=== PATIENT | male | born 1955 | race Caucasian/White ===

== ENCOUNTER 2017-03-24 10:53 | Emergency (ER) | payer SELFPAY ==
[~2017-03-24] VITALS: Ht 175.3 cm; Wt 65.0 kg
[2017-03-24 10:54] VITALS: BP 121/67; PULSE 104; RESP 16; TEMP 98.2; O2SAT 98
--- NOTE | 2017-03-24 11:26 | PD ---
HPI Chief Complaint: Injury Time Seen by Provider: 11:22 Travel History International Travel<30 days: No Contact w/Intl Traveler<30days: No Traveled to known affect area: No History of Present Illness HPI 61-year-old male presents to the emergency department for evaluation of a spot on his right posterior shoulder as well as left knee erythema and warmth. Patient states symptoms started approximately 2 weeks ago. Patient denies any fevers or chills. No chest pain or shortness breath. No abdominal pain. No nausea, vomiting, diarrhea. Patient denies any specific injury to cause symptoms. He does report a history of type 2 diabetes and diabetic neuropathy. He states that he was on Humalog, Lantus, gabapentin. However, he has been off these medications since September. He states he is homeless and living out of his car and cannot afford insulin. The patient denies any other complaints at this time. PFSH Past Medical History Diabetes: Yes Patient Takes Glucophage: Yes (suposed to be taking metformin ) Influenza Vaccination: No Past Surgical History Other Surgery: Yes (absess removed ) Social History Alcohol Use: Yes (occ) Tobacco Use: No (hx quit ) Substance Use: Yes (marajuiana ) Allergies-Medications (Allergen,Severity, Reaction): Coded Allergies: Demerol (Verified Allergy, Severe, 03/24/17) irritated Lobster (Verified Allergy, Severe, Anaphylaxis, 03/24/17) Sulfa (Verified Allergy, Severe, 03/24/17) Codeine (Verified Adverse Reaction, Unknown, 03/24/17) sleepy Reported Meds & Prescriptions Reported Meds & Active Scripts Active Metformin (Metformin HCl) 500 Mg Tab 500 Mg PO BIDPC With meals Keflex (Cephalexin) 500 Mg Cap 500 Mg PO Q6H 10 Days Bactrim DS (Sulfamethoxazole-Trimethoprim) 800-160 Mg Tab 1 Tab PO BID Review of Systems Except as stated in HPI: all other systems reviewed are Neg Physical Exam Narrative GENERAL: Well-nourished, well-developed male patient, afebrile. Patient is ambulatory. SKIN: Focused skin assessment warm/dry. Patient has 1.5 cm x 1.5 cm area of erythema with a black center to the right posterior shoulder. No active drainage. No fluctuance or abscess formation. Patient also has 11 cm x 9 cm area of erythema over the left anterior knee. No evidence of fluctuance. Atraumatic. HEAD: Normocephalic. EYES: No scleral icterus. No injection or drainage. NECK: Supple, trachea midline. No JVD or lymphadenopathy. CARDIOVASCULAR: Regular rate and rhythm without murmurs, gallops, or rubs. Bilateral radial and pedal pulses are 2+. RESPIRATORY: Breath sounds equal bilaterally. No accessory muscle use. Lungs sounds are clear to auscultation. GASTROINTESTINAL: Abdomen soft, non-tender, nondistended. MUSCULOSKELETAL: No cyanosis, or edema. Patient has tenderness to palpation over left anterior knee. He has full flexion and extension, but pain with flexion. BACK: Nontender without obvious deformity. No CVA tenderness. Data Data Last Documented VS Vital Signs Date Time Temp Pulse Resp B/P Pulse Ox O2 Delivery O2 Flow Rate FiO2 03/24/17 11:12 109 18 Room Air 03/24/17 10:54 98.2 121/67 98 Orders Complete Blood Count With Diff (03/24/17 11:17) Comprehensive Metabolic Panel (03/24/17 11:17) Magnesium (Mg) (03/24/17 11:17) Beta Hydroxybutyrate (Acetone) (03/24/17 11:17) Urinalysis - C+S If Indicated (03/24/17 11:17) Blood Gas Venous (Vbg) (03/24/17 11:17) Sodium Chlor 0.9% 1000 Ml Inj (Ns 1000 M (03/24/17 11:30) Knee, Complete (4vws) (03/24/17 ) Sodium Chlor 0.9% 1000 Ml Inj (Ns 1000 M (03/24/17 12:30) Clindamycin Inj (Cleocin Inj) (03/24/17 12:30) Insulin Human Regular Inj (Novolin R Inj (03/24/17 12:30) Insulin Human Regular Inj (Novolin R Inj (03/24/17 12:30) Blood Glucose (03/24/17 13:52) Labs Laboratory Tests Test 03/24/17 03/24/17 11:29 11:30 Blood Gas Puncture Site LINE Blood Gas Patient Temperature 98.6 Venous Blood pH 7.38 Venous Blood Partial Pressure 44 mmHg CO2 Venous Blood Partial Pressure 35 mmHg O2 Venous Blood HCO3 25 mmol/L Venous Blood Oxygen Saturation 70 % Venous Blood Oxygen Content 12.1 Vol % Venous Blood Base Excess 0.7 mmol/L Blood Gas Inspired Oxygen 21 % White Blood Count 6.2 TH/MM3 Red Blood Count 4.62 MIL/MM3 Hemoglobin 12.7 GM/DL Hematocrit 38.1 % Mean Corpuscular Volume 82.4 FL Mean Corpuscular Hemoglobin 27.4 PG Mean Corpuscular Hemoglobin 33.2 % Concent Red Cell Distribution Width 13.4 % Platelet Count 345 TH/MM3 Mean Platelet Volume 7.8 FL Neutrophils (%) (Auto) 74.6 % Lymphocytes (%) (Auto) 14.2 % Monocytes (%) (Auto) 8.1 % Eosinophils (%) (Auto) 2.2 % Basophils (%) (Auto) 0.9 % Neutrophils # (Auto) 4.6 TH/MM3 Lymphocytes # (Auto) 0.9 TH/MM3 Monocytes # (Auto) 0.5 TH/MM3 Eosinophils # (Auto) 0.1 TH/MM3 Basophils # (Auto) 0.1 TH/MM3 CBC Comment DIFF FINAL Differential Comment Sodium Level 127 MEQ/L Potassium Level 4.0 MEQ/L Chloride Level 90 MEQ/L Carbon Dioxide Level 26.3 MEQ/L Anion Gap 11 MEQ/L Blood Urea Nitrogen 8 MG/DL Creatinine 1.21 MG/DL Estimat Glomerular Filtration 61 ML/MIN Rate Random Glucose 603 MG/DL Calcium Level 9.7 MG/DL Magnesium Level 1.8 MG/DL Total Bilirubin 1.1 MG/DL Aspartate Amino Transf 8 U/L (AST/SGOT) Alanine Aminotransferase 13 U/L (ALT/SGPT) Alkaline Phosphatase 122 U/L Total Protein 8.0 GM/DL Albumin 3.2 GM/DL B-Hydroxybutyrate 0.24 MMOL/L [facility] Medical Decision Making Medical Screen Exam Complete: Yes Emergency Medical Condition: Yes Medical Record Reviewed: Yes Interpretation(s) x-ray left knee - CONCLUSION: Negative for joint effusion. Differential Diagnosis Cellulitis versus hyperglycemia versus DKA versus abscess versus unlikely septic joint Narrative Course 61-year-old male presents to the emergency department for evaluation of area to his right posterior shoulder and left anterior knee that up and ongoing for approximately 2 weeks. There is no evidence of septic joint on exam as patient has full flexion and extension of the left knee. No evidence of abscess formation. CBC, CMP, UA, beta hydroxybutyrate, VBG are ordered and pending. Patient is given normal saline 1 L IV bolus. X-ray of the left knee is ordered and pending. CBC shows normal WBC of 6.2. CMP shows hyponatremia 127, glucose 603, alkaline phosphatase 122. Anion gap is normal at 11, CO2 is 26.3. Beta hydroxybutyrate is 0.24. VBG is unremarkable. X-ray of the left knee is negative for joint effusion. Patient is given second liter normal saline IV bolus. Patient is given regular insulin 6 units IV and 10 units subcutaneous. Patient is given clindamycin 600 mg IV. I contacted financial counselor who will speak to patient about financial assistance. Repeat blood glucose is 376. My attending physician, Dr. Hoskins, is aware of all findings and agrees with plan and disposition. Patient will be discharged with a prescription for Bactrim, Keflex, metformin. He is to [facility]-up at the community clinic. He verbalizes agreement and understanding. The patient was discharged in stable condition with instructions, including return instructions and follow up instructions. Diagnosis Primary Impression: Hyperglycemia due to type 2 diabetes mellitus Qualified Code: E11.65 - Type 2 diabetes mellitus with hyperglycemia, unspecified halfway insulin use status Additional Impression: Cellulitis of left knee Referrals: [facility] Primary Care Physician call for appointment Patient Instructions: Cellulitis (ED), Diabetic Hyperglycemia (ED), General Instructions Additional Instructions: Take metformin as directed. This history at [facility]. Take Bactrim as directed until gone. This is free of [employer]. Keflex is $4 at [facility]. Take this until gone. Follow-up with at [facility]. Apply for patient assistance. Return to the emergency department for any acute worsening of symptoms. Med/Other Pt SpecificInfo: Prescription(s) given Scripts Metformin 500 Mg [id number] Mg PO BIDPC #60 TAB Ref 0 With meals Prov:Basia Can 03/24/17 Cephalexin (Keflex)500 Mg [id number] Mg PO Q6H 10 Days Ref 0 Prov:Basia Can 03/24/17 Sulfamethoxazole-Trimethoprim (Bactrim DS)800-160 Mg Tab1 Tab PO BID #20 TAB Ref 0 Prov:Basia Can 03/24/17 Disposition: DISCHARGE HOME Condition: Stable Basia Can Mar 24, 2017 11:26
[2017-03-24] MEDS ORDERED: SODIUM CHLOR 0.9% 1000 ML INJ 1,000 ML IV ONE ×2 (11:30→12:30)
[2017-03-24 11:42] LABS: BLOOD GAS VENOUS BASE EXCESS 0.7 mmol/L (-2-2); BLOOD GAS VENOUS HCO3 25 mmol/L (22-26); BLOOD GAS VENOUS O2 CONTENT 12.1 Vol % (9.0-17.0); BLOOD GAS VENOUS O2 HGB SAT 70 % (70-76); BLOOD GAS VENOUS PCO2 44 mmHg (44-48); BLOOD GAS VENOUS PO2 35 mmHg (35-40); BLOOD GAS VENOUS pH 7.38 (7.360-7.400); TEMP CORR TO 98.6
[2017-03-24 11:43] LABS: CRITICAL VALUE NO; DRAW SITE LINE; FIO2 21 %; STAT YES
[2017-03-24 11:45] LABS: AUTOMATED NEUTROPHIL # 4.6 TH/MM3 (1.8-7.7); BASOPHIL # 0.1 TH/MM3 (0-0.2); BASOPHIL % 0.9 % (0.0-2.0); EOSINOPHIL # 0.1 TH/MM3 (0-0.4); EOSINOPHIL % 2.2 % (0.0-4.0); HEMATOCRIT 38.1 % (39.0-51.0); HEMO FLAGS DIFF FINAL; LYMPH % 14.2 % (9.0-44.0); LYMPHOCYTE # 0.9 TH/MM3 (1.0-4.8); MEAN CELL VOLUME 82.4 FL (80.0-100.0); MEAN CORPUSCULAR HEMOGLOBIN 27.4 PG (27.0-34.0); MEAN CORPUSCULAR HGB CONC 33.2 % (32.0-36.0); MONO % 8.1 % (0.0-8.0); NEUT % 74.6 % (16.0-70.0); PLATELET COUNT 345 TH/MM3 (150-450); RED BLOOD COUNT 4.62 MIL/MM3 (4.50-5.90); RED CELL DISTRIBUTION WIDTH 13.4 % (11.6-17.2); WHITE BLOOD COUNT 6.2 TH/MM3 (4.0-11.0)
--- NOTE | 2017-03-24 11:57 | RADRPT ---
EXAM DATE/TIME: 03/24/2017 11:47 [facility] COMPARISON: No previous studies available for comparison. INDICATIONS : Pain of left knee, patient stats abcess on anterior surface of left knee. MEDICAL HISTORY : Diabetes mellitus type II. Bipolar, PTSD SURGICAL HISTORY : None. ENCOUNTER: Initial ACUITY: 2 weeks PAIN SCORE: 10/10 LOCATION: Left knee FINDINGS: Four view examination of the left knee demonstrates no evidence of fracture or dislocation. Bony min eralization is normal. The articular surfaces are intact. There is no soft tissue air The suprapate llar soft tissues have a normal configuration. CONCLUSION: Negative for joint effusion. Justyn Chavez MD FACR on March 24, 2017 at 11:52 Board Certified Radiologist. This report was verified electronically.
[2017-03-24 12:02] LABS: ANION GAP 11 MEQ/L (5-15)
[2017-03-24 12:10] LABS: ALKALINE PHOSPHATASE 122 U/L (45-117); ALT (GPT) 13 U/L (12-78); AST (GOT) 8 U/L (15-37); BETA-HYDROXYBUTYRATE 0.24 MMOL/L (0.00-0.39); BICARBONATE 26.3 MEQ/L (21.0-32.0); BLOOD UREA NITROGEN 8 MG/DL (7-18); CHLORIDE 90 MEQ/L (98-107); GLOMERULAR FILTRATION RATE 61 ML/MIN (>89); MAGNESIUM 1.8 MG/DL (1.5-2.5); SODIUM (NA) 127 MEQ/L (136-145); TOTAL BILIRUBIN ADULT 1.1 MG/DL (0.2-1.0)
[2017-03-24] MEDS ORDERED: INSULIN HUMAN REGULAR 1,000 UNITS/10 ML VIAL SQ ONE (12:30)
[2017-03-24] MEDS ORDERED: CLINDAMYCIN INJ 600 MG in SODIUM CHLORIDE 0.9% INJ 100 ML IV ONE (12:30)
[2017-03-24] MEDS ORDERED: INSULIN HUMAN REGULAR 1,000 UNITS/10 ML VIAL IV PUSH ONE (12:30)
[2017-03-24] MEDS ORDERED: BACT800T5 PO (12:32)
[2017-03-24] MEDS ORDERED: METF500T PO (12:32)
[2017-03-24] MEDS ORDERED: CEPH-460 PO (12:32)
[2017-03-24 15:23] LABS: BLOOD, URINE NEG (NEG); COMMENT (UR) CULT NOT INDICATED; CULTURE IF INDICATED CULT NOT INDICATED; GLUCOSE,URINE 1000 mg/dL (NEG); KETONE, URINE TRACE mg/dL (NEG); NITRITE,URINE NEG (NEG); PH, URINE 6.5 (5.0-8.5); URINE COLOR LIGHT-YELLOW (YELLW/STRAW)
== END 2017-03-24 15:29 | disposition home or self-care (01) ==
LOC: NEPE 10:53
DX: E11.65 Type 2 diabetes mellitus with hyperglycemia (principal); L03.116 Cellulitis of left lower limb; E11.40 Type 2 diabetes mellitus with diabetic neuropathy, unspecified; F12.90 Cannabis use, unspecified, uncomplicated; Z59.0 Homelessness; Z79.4 Long term (current) use of insulin
CPT/HCPCS: 73564; 80053; 81001; 82010; 82805; 83735; 85025; 96372; 96374; 96375; 99284; J1815; J7030

== ENCOUNTER 2017-04-26 12:26 | Emergency (ER) | payer SELFPAY ==
[~2017-04-26 12:26] MED LIST: BACT800T5 PO; CEPH-460 PO; METF500T PO
[2017-04-26 12:31] VITALS: BP 97/66; PULSE 114; RESP 17; TEMP 98.3; O2SAT 98
--- NOTE | 2017-04-26 12:39 | PD ---
Physical Exam Date Seen by Provider: Apr 26, 2017 Time Seen by Provider: 12:36 Data Data Last Documented VS Vital Signs Date Time Temp Pulse Resp B/P Pulse Ox O2 Delivery O2 Flow Rate FiO2 04/26/17 12:31 98.3 114 17 97/66 98 MDM Supervised Visit with ANGELA: No Narrative Course 61 YO M with PMH of DM presents with complaint of left knee pain Patient seen here 03/24 and provided prescriptions for cellulitis/ abscess. Took Keflex with some improvement, worsening over the last couple days. Allergic to Bactrim. Endorses chills. Vitals reviewed. Patient seen in triage. Awaiting bed placement. Renetta Medina Apr 26, 2017 12:39
[2017-04-26 12:41] VITALS: BP 105/67; PULSE 107; RESP 18
--- NOTE | 2017-04-26 13:41 | PD ---
HPI Chief Complaint: Skin Problem Time Seen by Provider: 13:12 Travel History International Travel<30 days: No Contact w/Intl Traveler<30days: No Traveled to known affect area: No History of Present Illness HPI This is a 61-year-old male who has a history of chronic homelessness and diabetes who presents to the emergency department with 1 week of increasing redness and swelling of his left knee. He was seen at an outside hospital and treated for cellulitis with Keflex and Bactrim. He took the Keflex but the Bactrim he says he is allergic to. He denies any fevers or chills but says he feels like his swelling is been worsening, moderate severity, constant. PFSH Past Medical History Diabetes: Yes Past Surgical History Other Surgery: Yes (absess removed ) Social History Alcohol Use: Yes (occ) Tobacco Use: No (hx quit ) Substance Use: Yes (marajuiana ) Allergies-Medications (Allergen,Severity, Reaction): Coded Allergies: Demerol (Verified Allergy, Severe, 04/26/17) irritated Lobster (Verified Allergy, Severe, Anaphylaxis, 04/26/17) Sulfa (Verified Allergy, Severe, 04/26/17) Codeine (Verified Adverse Reaction, Unknown, 04/26/17) sleepy Reported Meds & Prescriptions Reported Meds & Active Scripts Active Metformin (Metformin HCl) 500 Mg Tab 500 Mg PO BIDPC With meals Review of Systems Except as stated in HPI: all other systems reviewed are Neg Physical Exam Narrative GENERAL:Well appearing, no acute distress SKIN: Erythema and some warmth overlying the left lower pole of the patella with some scabbing and some scant purulent drainage. HEAD: Atraumatic. Normocephalic. EYES: Pupils equal and round. No injection or drainage. ENT: Moist mucous membranes NECK: Trachea midline. CARDIOVASCULAR: Regular rate and rhythm. No murmur appreciated. RESPIRATORY: Clear to auscultation. Breath sounds equal bilaterally. GASTROINTESTINAL: Abdomen soft, non-tender, nondistended. MUSCULOSKELETAL: Full painless range of motion of the left knee with no joint effusion. NEUROLOGICAL: Awake and alert. No obvious cranial nerve deficits. Moving all extremities. PSYCHIATRIC: Appropriate mood and affect; insight and judgment normal. Data Data Last Documented VS Vital Signs Date Time Temp Pulse Resp B/P Pulse Ox O2 Delivery O2 Flow Rate FiO2 04/26/17 12:41 107 18 105/67 04/26/17 12:31 98.3 98 Orders Complete Blood Count With Diff (04/26/17 13:18) Comprehensive Metabolic Panel (04/26/17 13:18) Wound Culture And Gram Stain (04/26/17 13:18) [facility] ([facility] (04/26/17 14:45) [place]in Inj ([facility] Inj) (04/26/17 14:44) Sodium Chlor 0.9% 1000 Ml Inj (Ns 1000 M (04/26/17 15:30) Insulin Human Regular Inj (Novolin R Inj (04/26/17 15:30) Asp:No Reaction To [place]/Vanc (Asp Crit (04/26/17 15:45) Asp: Does Not Meet Inpt Admit (Asp Crit: (04/26/17 15:45) Asp: Iv Antibiotics Admit Only (Asp Crit (04/26/17 15:45) Asp: Location Of [place] Admin (Asp Crit: (04/26/17 15:45) Dal[place]avancin Inj (Dalvance Inj) (04/26/17 16:42) Labs Laboratory Tests Test 04/26/17 14:05 White Blood Count 5.7 TH/MM3 Red Blood Count 5.21 MIL/MM3 Hemoglobin 14.2 GM/DL Hematocrit 42.9 % Mean Corpuscular Volume 82.3 FL Mean Corpuscular Hemoglobin 27.3 PG Mean Corpuscular Hemoglobin 33.2 % Concent Red Cell Distribution Width 13.8 % Platelet Count 346 TH/MM3 Mean Platelet Volume 7.3 FL Neutrophils (%) (Auto) 71.7 % Lymphocytes (%) (Auto) 17.0 % Monocytes (%) (Auto) 7.2 % Eosinophils (%) (Auto) 3.2 % Basophils (%) (Auto) 0.9 % Neutrophils # (Auto) 4.1 TH/MM3 Lymphocytes # (Auto) 1.0 TH/MM3 Monocytes # (Auto) 0.4 TH/MM3 Eosinophils # (Auto) 0.2 TH/MM3 Basophils # (Auto) 0.1 TH/MM3 CBC Comment DIFF FINAL Differential Comment Sodium Level 129 MEQ/L Potassium Level 5.0 MEQ/L Chloride Level 93 MEQ/L Carbon Dioxide Level 25.7 MEQ/L Anion Gap 10 MEQ/L Blood Urea Nitrogen 8 MG/DL Creatinine 1.01 MG/DL Estimat Glomerular Filtration 75 ML/MIN Rate Random Glucose 430 MG/DL Calcium Level 9.7 MG/DL Total Bilirubin 1.1 MG/DL Aspartate Amino Transf 9 U/L (AST/SGOT) Alanine Aminotransferase 13 U/L (ALT/SGPT) Alkaline Phosphatase 132 U/L Total Protein 8.7 GM/DL Albumin 3.7 GM/DL MDM Medical Decision Making Medical Screen Exam Complete: Yes Emergency Medical Condition: Yes Interpretation(s) Afebrile No leukocytosis Hyperglycemia Differential Diagnosis Hyperglycemia, bursitis, cellulitis, septic arthritis Narrative Course This is a 61-year-old male who is homeless who has a history of diabetes who presents to the emergency department with cellulitis involving his left knee. He has no evidence of septic arthritis. He is nontoxic appearing, afebrile with no leukocytosis. He completed Keflex but didn't take Bactrim that he certainly at high risk for MRSA. I think is still appropriate for outpatient management. I think he is a good candidate for doubt [facility]. He was given a dose of IV doubt answer the emergency department. He'll return if his symptoms worsen. He was hyperglycemic. He is given a liter of IV fluid and 7 units of IV insulin. Subsequently he drank a liter of Coca-Cola that he brought with him. When the nurse asked him to stop drinking max was can raise his blood sugar he refused and said he just wants to get out of here and get his antibiotics. Patient will be discharged home. Diagnosis Primary Impression: Cellulitis of left knee Patient Instructions: General Instructions Additional Instructions: If you develop fever, increasing redness, warmth, or spreading of your infection , or severe pain return to the emergency department immediately as you may require antibiotics through your IV. Complete your course of antibiotics as prescribed. Med/Other Pt SpecificInfo: No Change to Meds Disposition: 01 DISCHARGE HOME Condition: Stable Lola Almanzar MD Apr 26, 2017 13:40
[2017-04-26 14:28] LABS: AUTOMATED NEUTROPHIL # 4.1 TH/MM3 (1.8-7.7); BASOPHIL # 0.1 TH/MM3 (0-0.2); BASOPHIL % 0.9 % (0.0-2.0); EOSINOPHIL # 0.2 TH/MM3 (0-0.4); EOSINOPHIL % 3.2 % (0.0-4.0); HEMATOCRIT 42.9 % (39.0-51.0); HEMO FLAGS DIFF FINAL; MEAN CELL VOLUME 82.3 FL (80.0-100.0); MEAN CORPUSCULAR HEMOGLOBIN 27.3 PG (27.0-34.0); MEAN CORPUSCULAR HGB CONC 33.2 % (32.0-36.0); MONO % 7.2 % (0.0-8.0); NEUT % 71.7 % (16.0-70.0); PLATELET COUNT 346 TH/MM3 (150-450); RED BLOOD COUNT 5.21 MIL/MM3 (4.50-5.90); RED CELL DISTRIBUTION WIDTH 13.8 % (11.6-17.2); WHITE BLOOD COUNT 5.7 TH/MM3 (4.0-11.0)
[2017-04-26] MEDS ORDERED: DALBAVANCIN INJ 1,500 MG in DEXTROSE 5% IN WATE 500 ML INJ 500 ML IV STA ×4 (14:44→16:42)
[2017-04-26] MEDS ORDERED: MISCELLANEOUS PHARMACY INFORMATION XX ONE (14:45)
[2017-04-26 14:55] LABS: ALKALINE PHOSPHATASE 132 U/L (45-117); ALT (GPT) 13 U/L (12-78); ANION GAP 10 MEQ/L (5-15); AST (GOT) 9 U/L (15-37); BICARBONATE 25.7 MEQ/L (21.0-32.0); BLOOD UREA NITROGEN 8 MG/DL (7-18); CHLORIDE 93 MEQ/L (98-107); GLOMERULAR FILTRATION RATE 75 ML/MIN (>89); SODIUM (NA) 129 MEQ/L (136-145); TOTAL BILIRUBIN ADULT 1.1 MG/DL (0.2-1.0)
[2017-04-26] MEDS ORDERED: SODIUM CHLOR 0.9% 1000 ML INJ 1,000 ML IV SCH (15:30)
[2017-04-26] MEDS ORDERED: INSULIN HUMAN REGULAR 1,000 UNITS/10 ML VIAL IV PUSH ONE (15:30)
[2017-04-26] MEDS ORDERED: ASP: Does not meet inpatient admission criteria OTHER ONE (15:45)
[2017-04-26] MEDS ORDERED: ASP: Only reason for admit - IV antibiotics OTHER ONE (15:45)
[2017-04-26] MEDS ORDERED: ASP: Location of Dalbavancin administration OTHER ONE (15:45)
[2017-04-26] MEDS ORDERED: ASP: No known hypersensitivity to Vanco, Telavancin, Dalbavancin OTHER ONE (15:45)
== END 2017-04-26 19:15 | disposition home or self-care (01) ==
LOC: NEPD 12:26
DX: L03.116 Cellulitis of left lower limb (principal); A49.01 Methicillin susceptible Staphylococcus aureus infection, unspecified site; E11.65 Type 2 diabetes mellitus with hyperglycemia; Z59.0 Homelessness; Z88.2 Allergy status to sulfonamides; Z88.5 Allergy status to narcotic agent
CPT/HCPCS: 80053; 85025; 86403; 87070; 87186; 96361; 96365; 96375; 99284; J0875; J1815; J7030; J7060